=== PATIENT | male | born 1960 | race Caucasian/White ===

== ENCOUNTER 2017-11-25 13:49 | Emergency (ER) | payer BC ==
[~2017-11-25] VITALS: Wt 93.0 kg
[~2017-11-25 13:49] MED LIST: ATENOLOL25 MG PO; CRESTOR20 MG PO; DILANTIN100 MG PO; PREVACID15 MG PO; VITAMIN D400 I1 PO
== END 2017-11-25 15:25 | disposition home or self-care (01) ==
LOC: ED 13:49
DX: S89.92XA Unspecified injury of left lower leg, initial encounter (principal); Z79.899 Other long term (current) drug therapy; W01.0XXA Fall on same level from slipping, tripping and stumbling without subsequent striking against object, initial encounter; Y93.89 Activity, other specified; Y92.89 Other specified places as the place of occurrence of the external cause; Y99.8 Other external cause status